=== PATIENT | male | born 1980 | race African-American/Black ===

== ENCOUNTER 2019-03-30 12:26 | Emergency (ER) | payer OTHER ==
[~2019-03-30] VITALS: Ht 180.3 cm; Wt 106.6 kg
[2019-03-30 13:35] LABS: ABSOLUTE NEUTROPHILS 3.7 thou/uL (1.4-8.2); BASOPHILS 0.5 % (0.0-2.0); EOSINOPHILS 3.1 % (0.0-3.0); HEMATOCRIT 44.9 % (42.0-52.0); HEMOGLOBIN 15.3 gm/dL (14.0-18.0); LYMPHOCYTES 30.4 % (24.0-44.0); MCH 32.7 pg (26.0-34.0); MCHC 34.1 g/dL (28.0-37.0); MCV 95.8 fL (80.0-100.0); PLATELET COUNT 226 thou/uL (150-400); RBC 4.68 mil/uL (4.50-6.00); RDW 13.2 % (10.5-14.5); WBC 6.6 thou/uL (4.0-11.0)
[2019-03-30 13:38] LABS: ANION GAP 9 mmol/L (7-16); BUN 11 mg/dL (7-18); CALCIUM 9.8 mg/dL (8.5-10.1); CHLORIDE 104 mmol/L (98-107); CO2 27 mmol/L (21-32); CREATININE 1.3 mg/dL (0.7-1.3); GLUCOSE 101 mg/dL (74-106); POTASSIUM 4.1 mmol/L (3.5-5.1); SODIUM 140 mmol/L (136-145)
[2019-03-30 13:49] LABS: ALBUMIN 3.9 g/dL (3.4-5.0); LIPASE 98 U/L (73-393); MAGNESIUM 2.1 mg/dL (1.8-2.4); SGOT 38 U/L (15-37); SGPT 36 U/L (30-65); TOTAL BILIRUBIN 0.3 mg/dL (<0.1-1.0); TOTAL PROTEIN 8.1 g/dL (6.4-8.2); TROPONIN-I <0.06 ng/mL (<0.06)
[2019-03-30 16:15] VITALS: BP 129/78
--- NOTE | 2019-03-30 17:50 | EKG ---
[facility] [place] [address] ELECTROCARDIOGRAM REPORT Name: ELICEO RICE Room #: DEP Jose Alfredo#: [id number] Admission: 03/30/19 Attend Phys: Discharge: 03/30/19 Date of : 76 Report #: [id number] THIS REPORT FOR: //name// [facility] ED Test Date: 2019-03-30 Test Time: 12:29:59 Pat Name: ELICEO RICE Department: Room: Gender: Bi Analyst: : 1980 Requested By: Freddy William Order Number: [id number] MD: Bryan Sidhu Measurements Intervals [place] Rate: 78 P: 55 RI: 151 QRS: -24 QRSD: 112 T: 6 QT: 384 QTc: 438 Interpretive Statements Sinus rhythm Incomplete RBBB and LAFB Low voltage, extremity and precordial leads No previous ECG available for comparison Electronically Signed On 03-30-2019 17:50:39 PACKING MACHINE INSPECTOR by Bryan Sidhu [email or web address] <ELECTRONICALLY SIGNED> By: Bryan Sidhu MD, [facility] 03/30/19 1750 1229 1229 Bryan Sidhu MD, FACC /EPI
--- NOTE | 2019-03-30 17:52 | EKG ---
[facility] [place] [address] [place] [address] ELECTROCARDIOGRAM REPORT Name: ELICEO RICE Room #: DEP SIMRAN Veliz#: [id number] Admission: 03/30/19 Attend Phys: Discharge: 03/30/19 Date of : [birth year] Report #: [id number] THIS REPORT FOR: //name// [facility] ED Test Date: 2019-03-30 Test Time: 14:48:26 Pat Name: ELICEO RICE Department: Room: Gender: Sulky Driver: KULWINDER : 1980 Requested By: Aliyah Stevenson Order Number: [id number] MD: Bryan Sidhu Measurements Intervals [place] Rate: 62 P: 53 MO: 159 QRS: -31 QRSD: 100 T: 2 QT: 422 QTc: 429 Interpretive Statements Sinus rhythm Left axis deviation RSR' in V1 or V2, probably normal variant No previous ECG available for comparison Electronically Signed On 03-30-2019 17:52:43 TRACK SERVICE WORKER by Bryan Sidhu [email or web address] <ELECTRONICALLY SIGNED> By: Bryan Sidhu MD, [facility] 03/30/19 1752 1448 1448 Bryan Sidhu MD, FACC /EPI
== END 2019-03-30 16:16 | disposition home or self-care (01) ==
LOC: ER 12:26
PROVIDERS: Nurse Practitioner Family
DX: R07.89 Other chest pain (principal); F41.9 Anxiety disorder, unspecified; F17.210 Nicotine dependence, cigarettes, uncomplicated